=== PATIENT | male | born 1985 | race Caucasian/White ===

== ENCOUNTER 2017-12-01 05:11 | Emergency (ER) | payer SELFPAY ==
[~2017-12-01] VITALS: Ht 180.3 cm; Wt 107.2 kg
[2017-12-01 06:29] LABS: HEMATOCRIT 45.6 % (38.0-50.0); HEMOGLOBIN 15.9 G/DL (12.5-16.6); MCH 32.1 PG (29.0-34.0); MCHC 34.9 G/DL (30.0-36.0); MCV 92.1 FL (86-99); PLATELET COUNT 244 K/uL (156-360); RBC DIS.WIDTH-CV 12.3 % (11.8-14.6); RBC DIS.WIDTH-SD 41.6 % (39-53); RED BLOOD COUNT 4.95 M/uL (4.00-5.50); WHITE BLOOD COUNT 10.3 K/uL (4.1-10.2)
[2017-12-01 06:40] LABS: CHLORIDE 103 mEq/L (99-109); POTASSIUM 4.3 mEq/L (3.7-5.4); SODIUM 141 mEq/L (136-147)
[2017-12-01 06:42] LABS: GLUCOSE 94 mg/dL (70-99)
[2017-12-01 06:46] LABS: CREATININE 1.3 mg/dL (0.6-1.3); GFR ESTIMATE (CALCULATED) > 59 mL/min/ (58.99-99999); UREA NITROGEN (BUN) 19 mg/dL (9-23)
[2017-12-01] MEDS ORDERED: MOTRIN600 MG PO (08:14)
[2017-12-01 08:20] VITALS: BP 114/69
== END 2017-12-01 08:32 | disposition home or self-care (01) ==
LOC: EME 05:11
PROVIDERS: Physician Assistant
DX: K11.20 Sialoadenitis, unspecified (principal)
CPT/HCPCS: 70491; 80048; 85027; 86735 90; 99281; 99284; J1100; J1885